=== PATIENT | male | born 1960 | race Caucasian/White ===

== ENCOUNTER 2019-03-17 17:48 | Inpatient (IN) ==
[2019-03-17 19:02] LABS: BASO# 0.03 X1000 (0.0-0.2); BASO% 0.2 % (0.0-0.8); EOS% 0.5 % (0.0-10.0); HEMATOCRIT 39.8 % (42.0-52.0); HEMOGLOBIN 13.1 g/dL (14.0-18.0); IMM GRAN# 0.12 X1000 (0.0-0.04); IMM GRAN% 0.7 % (0.0-0.5); LYMPH# 2.26 X1000 (1.2-3.4); LYMPH% 12.3 % (20.5-51.1); MCH 30.3 PG (27-31); MCHC 32.9 g/dL (33-37); MCV 91.9 FL (81-99); MONO# 1.76 X1000 (0.11-0.59); MONO% 9.6 % (1.7-9.3); MPV 9.2 FL (7.4-10.4); NEUT# 14.05 X1000 (1.4-6.5); NEUT% 76.7 % (42.2-75.2); PLT 340 X1000 (130-400); RBC 4.33 XMIL (4.7-6.1); RDW 12.4 % (11.5-14.5); WBC 18.32 X1000 (4.8-10.8)
[2019-03-17 19:20] LABS: INR 1.24; PROTIME 16.3 Seconds (11.0-16.0); PTT 34.3 Seconds (22.3-41.8)
[2019-03-17 19:25] LABS: AGAP 14; ALBUMIN 4.3 g/dL (3.5-5.0); ALKALINE PHOSPHATASE 69 U/L (32-122); BUN 21 mg/dL (8-22); CALCIUM 9.1 mg/dL (8.8-10.2); CHLORIDE 100 mmol/L (98-107); CK PROFILE 59 U/L (24-204); COSMO 273; CREATININE 0.9 mg/dL (0.7-1.2); ESTIMATED GFR > 60; GLUCOSE 127 mg/dL (70-104); GOT 19 U/L (10-34); GPT 22 U/L (10-44); SODIUM 134 mmol/L (136-145); TCO2 20 mmol/L (25-35); TOTAL PROTEIN 7.9 g/dL (6.3-8.3)
[2019-03-18 04:18] LABS: AMYLASE 58 U/L (20-200); LIPASE 92 U/L (13-60)
[2019-03-18 04:36] LABS: BASO# 0.03 X1000 (0.0-0.2); BASO% 0.1 % (0.0-0.8); EOS# 0.02 X1000 (0.0-0.7); EOS% 0.1 % (0.0-10.0); HEMATOCRIT 41.5 % (42.0-52.0); HEMOGLOBIN 13.9 g/dL (14.0-18.0); IMM GRAN# 0.13 X1000 (0.0-0.04); IMM GRAN% 0.6 % (0.0-0.5); LYMPH# 2.21 X1000 (1.2-3.4); LYMPH% 10.9 % (20.5-51.1); MCH 31.1 PG (27-31); MCHC 33.5 g/dL (33-37); MCV 92.8 FL (81-99); MONO# 1.81 X1000 (0.11-0.59); MONO% 8.9 % (1.7-9.3); MPV 9.5 FL (7.4-10.4); NEUT# 16.06 X1000 (1.4-6.5); NEUT% 79.4 % (42.2-75.2); PLT 318 X1000 (130-400); RBC 4.47 XMIL (4.7-6.1); RDW 12.5 % (11.5-14.5); WBC 20.26 X1000 (4.8-10.8)
[2019-03-18 04:39] LABS: ALB/GLOB RATIO 1.2; ALBUMIN 4.3 g/dL (3.5-5.0); CALCIUM 9.5 mg/dL (8.8-10.2); CREATININE 1.4 mg/dL (0.7-1.2); TOTAL BILIRUBIN 0.56 mg/dL (0.20-1.00); TOTAL PROTEIN 7.8 g/dL (6.3-8.3)
[2019-03-18 05:06] LABS: LYMPHS 11 % (21-51); MONO 9 % (1-9); SEGS 80 % (42-75)
[2019-03-18 11:04] LABS: URINE SOURCE CLEAN CATCH
[2019-03-18 11:09] LABS: BILIRUBIN URINE NEGATIVE (NEGATIVE); BLOOD URINE NEGATIVE (NEGATIVE); COLOR YELLOW; GLUCOSE URINE NEGATIVE (NEGATIVE); KETONE URINE NEGATIVE (NEGATIVE); LEUKOCYTES URINE NEGATIVE (NEGATIVE); NITRITE URINE NEGATIVE (NEGATIVE); PROTEIN URINE 30 mg/dL (NEGATIVE); TURBIDITY URINE CLEAR (CLEAR); UR EPITHELIAL CELLS <10 /HPF (<10); URINE BACTERIA NEGATIVE /HPF; URINE RBC <10 /HPF (<10); UROBILINOGEN URINE NORMAL (NORMAL)
[2019-03-18 11:19] LABS: SP GRAVITY URINE 1.015
[2019-03-18 11:41] LABS: ALLEN TEST YES; BE -1.3 mmoll (-3.0-3.0); BLOOD TYPE ARTERIAL; HCO3-(ACT) 23.8 mmoll (20.0-26.0); METHB 1.4 % (0.0-1.5); O2(CT) 17.3 mL/dL (15.0-23.0); O2HB 93.3 % (95.0-99.0); PCO2(98.6) 35 mmHg (35-45); PO2(98.6) 70 mmHg (60-100); SAMPLE BLOOD; SAO2 96.7 % (95.0-100.0); THB 13.2 g/dL (11.5-17.4); pH(98.6) 7.42 (7.35-7.45)
[2019-03-18 11:43] LABS: MODALITY CANNULA
[2019-03-18 17:55] LABS: CK INDEX 2.2 (0.0-2.5); CK-MB 4.85 ng/mL (0.0-5.0)
[2019-03-19 10:54] LABS: BASO# 0.03 X1000 (0.0-0.2); BASO% 0.2 % (0.0-0.8); EOS# 0.04 X1000 (0.0-0.7); EOS% 0.2 % (0.0-10.0); HEMATOCRIT 35.6 % (42.0-52.0); HEMOGLOBIN 11.7 g/dL (14.0-18.0); IMM GRAN# 0.08 X1000 (0.0-0.04); IMM GRAN% 0.5 % (0.0-0.5); LYMPH# 2.11 X1000 (1.2-3.4); MCH 30.7 PG (27-31); MCHC 32.9 g/dL (33-37); MCV 93.4 FL (81-99); MONO# 1.99 X1000 (0.11-0.59); MONO% 11.4 % (1.7-9.3); NEUT# 13.28 X1000 (1.4-6.5); NEUT% 75.7 % (42.2-75.2); PLT 322 X1000 (130-400); RBC 3.81 XMIL (4.7-6.1); RDW 12.5 % (11.5-14.5); WBC 17.53 X1000 (4.8-10.8)
[2019-03-19 11:22] LABS: AGAP 17; BUN 20 mg/dL (8-22); CALCIUM 9.1 mg/dL (8.8-10.2); CHLORIDE 92 mmol/L (98-107); COSMO 262; ESTIMATED GFR > 60; GLUCOSE 133 mg/dL (70-104); POTASSIUM 4.9 mmol/L (3.5-5.1); SODIUM 128 mmol/L (136-145); TCO2 19 mmol/L (25-35)
[2019-03-19 11:37] LABS: ANISOCYTOSIS 1+; LYMPHS 12 % (21-51); MONO 7 % (1-9); NRBC 2 % (0-0); SEGS 80 % (42-75)
[2019-03-20 06:48] LABS: BASO# 0.04 X1000 (0.0-0.2); BASO% 0.2 % (0.0-0.8); EOS# 0.06 X1000 (0.0-0.7); EOS% 0.4 % (0.0-10.0); HEMATOCRIT 35.1 % (42.0-52.0); HEMOGLOBIN 11.5 g/dL (14.0-18.0); IMM GRAN# 0.05 X1000 (0.0-0.04); IMM GRAN% 0.3 % (0.0-0.5); LYMPH# 2.02 X1000 (1.2-3.4); LYMPH% 12.4 % (20.5-51.1); MCH 31.6 PG (27-31); MCHC 32.8 g/dL (33-37); MCV 96.4 FL (81-99); MONO# 1.76 X1000 (0.11-0.59); MONO% 10.8 % (1.7-9.3); MPV 9.8 FL (7.4-10.4); NEUT# 12.32 X1000 (1.4-6.5); NEUT% 75.9 % (42.2-75.2); PLT 257 X1000 (130-400); RBC 3.64 XMIL (4.7-6.1); RDW 12.8 % (11.5-14.5); WBC 16.25 X1000 (4.8-10.8)
[2019-03-20 07:12] LABS: AGAP 14; BUN 14 mg/dL (8-22); CHLORIDE 93 mmol/L (98-107); COSMO 262; CREATININE 0.9 mg/dL (0.7-1.2); ESTIMATED GFR > 60; GLUCOSE 114 mg/dL (70-104); SODIUM 130 mmol/L (136-145); TCO2 23 mmol/L (25-35)
[2019-03-20 23:04] LABS: AGAP 12; BUN 12 mg/dL (8-22); CHLORIDE 92 mmol/L (98-107); COSMO 260; CREATININE 0.9 mg/dL (0.7-1.2); ESTIMATED GFR > 60; GLUCOSE 119 mg/dL (70-104); MAGNESIUM 2.1 mg/dL (1.5-2.7); POTASSIUM 4.3 mmol/L (3.5-5.1); SODIUM 129 mmol/L (136-145); TCO2 25 mmol/L (25-35)
[2019-03-21 05:51] LABS: AGAP 12; BUN 11 mg/dL (8-22); CALCIUM 8.6 mg/dL (8.8-10.2); CHLORIDE 94 mmol/L (98-107); COSMO 263; CREATININE 0.8 mg/dL (0.7-1.2); ESTIMATED GFR > 60; GLUCOSE 117 mg/dL (70-104); POTASSIUM 4.2 mmol/L (3.5-5.1); SODIUM 131 mmol/L (136-145); TCO2 25 mmol/L (25-35)
[2019-03-21 05:54] LABS: BASO# 0.03 X1000 (0.0-0.2); BASO% 0.2 % (0.0-0.8); EOS# 0.17 X1000 (0.0-0.7); EOS% 1.4 % (0.0-10.0); HEMATOCRIT 29.9 % (42.0-52.0); HEMOGLOBIN 9.6 g/dL (14.0-18.0); IMM GRAN# 0.07 X1000 (0.0-0.04); IMM GRAN% 0.6 % (0.0-0.5); LYMPH# 1.83 X1000 (1.2-3.4); LYMPH% 15.1 % (20.5-51.1); MCH 30.4 PG (27-31); MCHC 32.1 g/dL (33-37); MCV 94.6 FL (81-99); MONO# 1.32 X1000 (0.11-0.59); MONO% 10.9 % (1.7-9.3); MPV 8.8 FL (7.4-10.4); NEUT% 71.8 % (42.2-75.2); PLT 336 X1000 (130-400); RBC 3.16 XMIL (4.7-6.1); RDW 12.1 % (11.5-14.5); WBC 12.12 X1000 (4.8-10.8)
[2019-03-22 05:37] LABS: BASO# 0.06 X1000 (0.0-0.2); BASO% 0.6 % (0.0-0.8); EOS# 0.23 X1000 (0.0-0.7); EOS% 2.1 % (0.0-10.0); HEMATOCRIT 32.9 % (42.0-52.0); HEMOGLOBIN 10.6 g/dL (14.0-18.0); IMM GRAN# 0.11 X1000 (0.0-0.04); LYMPH# 1.95 X1000 (1.2-3.4); LYMPH% 17.9 % (20.5-51.1); MCH 30.6 PG (27-31); MCHC 32.2 g/dL (33-37); MCV 95.1 FL (81-99); MPV 9.1 FL (7.4-10.4); NEUT# 7.32 X1000 (1.4-6.5); NEUT% 67.4 % (42.2-75.2); PLT 334 X1000 (130-400); RBC 3.46 XMIL (4.7-6.1); RDW 12.2 % (11.5-14.5); WBC 10.87 X1000 (4.8-10.8)
[2019-03-22 05:44] LABS: AGAP 17; BUN 12 mg/dL (8-22); CALCIUM 8.8 mg/dL (8.8-10.2); CHLORIDE 97 mmol/L (98-107); COSMO 271; CREATININE 0.8 mg/dL (0.7-1.2); ESTIMATED GFR > 60; GLUCOSE 111 mg/dL (70-104); POTASSIUM 4.3 mmol/L (3.5-5.1); SODIUM 135 mmol/L (136-145); TCO2 21 mmol/L (25-35)
[2019-03-23 05:32] LABS: BASO# 0.05 X1000 (0.0-0.2); BASO% 0.5 % (0.0-0.8); EOS% 3.1 % (0.0-10.0); HEMOGLOBIN 10.5 g/dL (14.0-18.0); IMM GRAN# 0.18 X1000 (0.0-0.04); IMM GRAN% 1.9 % (0.0-0.5); LYMPH# 2.18 X1000 (1.2-3.4); LYMPH% 22.6 % (20.5-51.1); MCHC 31.8 g/dL (33-37); MCV 94.3 FL (81-99); MONO# 0.99 X1000 (0.11-0.59); MONO% 10.3 % (1.7-9.3); MPV 8.5 FL (7.4-10.4); NEUT# 5.94 X1000 (1.4-6.5); NEUT% 61.6 % (42.2-75.2); PLT 387 X1000 (130-400); RDW 12.2 % (11.5-14.5); WBC 9.64 X1000 (4.8-10.8)
[2019-03-23 06:00] LABS: AGAP 14; BUN 11 mg/dL (8-22); CALCIUM 9.3 mg/dL (8.8-10.2); CHLORIDE 96 mmol/L (98-107); COSMO 268; CREATININE 0.8 mg/dL (0.7-1.2); ESTIMATED GFR > 60; GLUCOSE 106 mg/dL (70-104); SODIUM 134 mmol/L (136-145); TCO2 24 mmol/L (25-35)
[2019-03-24 12:26] VITALS: BP 102/53
== END 2019-03-24 13:07 | disposition home or self-care (01) | DRG 314 ==
LOC: P.ED 17:48 → SUATTDRO 17:50 → ICU 03-18 00:57 → 1N 03-20 18:34
PROVIDERS: ATTEND Internal Medicine